=== PATIENT | female | born 1965 | race Caucasian/White ===

== ENCOUNTER 2024-05-20 09:28 | Emergency (ER) | payer BC, SELFPAY ==
[2024-05-20] VITALS (27 sets, daily range): BP systolic 69–118; BP diastolic 45–79; PULSE 68–77; TEMP 36.6; O2SAT 92–98; BMI 30.9
--- NOTE | 2024-05-20 09:47 | ECG_ITS ---
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
--- NOTE | 2024-05-20 09:48 | CT_ITS ---
The [address] [address] Patient Name: FANY SOLOMON MRN: [id number] date: 1965 Sex: F Assigned Patient Location: ER Current Patient Location: Accession/Order Number: [id number] Exam Date: 05/20/2024 09:55 Report Date: 05/20/2024 10:16 At the request of: KRISTIAN DIAZ Procedure: CT stroke head/brain wo con EXAMINATION: CT stroke head/brain wo con HISTORY: dysphasia COMPARISON: None. TECHNIQUE: CT head without contrast. Dose reduction techniques were achieved by using: automated exposure control and/or adjustment of mA and /or kV according to patient size and/or use of iterative reconstruction technique. FINDINGS: Negative for acute intracranial hemorrhage. Physiologic calcification bilateral basal ganglia. Ventricles and sulci normal in size. No hydrocephalus. No large loss of terry and white matter differentiation. No midline shift, mass effect, pathologic extra-axial fluid collections. CT/CT stroke head/brain wo con IMPRESSION: Negative for acute intracranial hemorrhage or acute intracranial process. Electronically authenticated by: MALATHI WEBBER Date: 05/20/2024 10:16
[2024-05-20 09:59] LABS: Glucometer 96 mg/dL (74-106)
--- NOTE | 2024-05-20 09:59 | ED_ITS ---
HPI HPI - General Adult General Chief complaint: Neuro Symptoms/Deficit Stated complaint: Possible Stroke Time Seen by Provider: 05/20/24 09:47 Source: patient Mode of arrival: walk-in History of Present Illness HPI narrative: Is a 58-year-old female with history of hypertension, is coming to the ER with symptoms of difficulty speaking, that according to her she just felt like she have extra movement of her mouth and tongue, the patient mentioned that her symptoms resolved at the happened within the last hour before arrival and resolved by the time she got to the ER. The patient is complaining also of a headache right now, she is denying any other complaints and she mentioned that she does not usually drink enough water and she was not [place] almost few days ago where she spends a lot of time outside without drinking water The patient denies any nausea vomiting diarrhea chest pain or dizziness She mentioned that she had similar symptoms almost 4 weeks ago when she had a complete workup for stroke that was negative but she also was hypotensive then She mentioned that she also have some dizziness at the moment Related Data Home Medications ?Medication ?Instructions ?Recorded ?Confirmed albuterol 90 mcg-budesonide 80 2 inh inhalation Q6H 05/20/24 05/20/24 mcg/actuation HFA aerosol inhaler (Airsupra) atorvastatin 40 mg tablet 40 mg PO DAILY 05/20/24 05/20/24 budesonide 160 mcg-glycopyr 9 2 inh inhalation Q12H 05/20/24 05/20/24 mcg-formot 4.8 mcg/actuation HFA inhaler (Breztri Aerosphere) gabapentin 800 mg tablet 800 mg PO Q6H 05/20/24 05/20/24 omeprazole 40 mg capsule,delayed 40 mg PO Q12H 05/20/24 05/20/24 release tizanidine 4 mg tablet 4 mg PO Q8H PRN muscle spasticity 05/20/24 05/20/24 zolpidem 10 mg tablet 10 mg PO BEDTIME 05/20/24 05/20/24 Allergies Allergy/AdvReac Type Severity Reaction Status Date / Time No Known Drug Allergies Allergy Verified 05/20/24 09:35 Opioid HPI Opioid Management Most Recent Opioid Data: No Data to Display Review of Systems ROS Status of ROS 10 or more systems reviewed and unremark able except as noted in history and below PFSH PFSH Social History Little interest or pleasure in doing things: not at all Feeling down, depressed, or hopeless: not at all Exam Narrative Exam Narrative: Nurses notes and vital signs reviewed and patient is not hypoxic. General: Well-appearing and in no apparent distress. Skin: Warm, dry, no pallor noted. No rash. Head: Normocephalic, atraumatic. Neck: Supple, non-tender. Eye: Pupils are equal, round and EOMI. No scleral icterus. Ears, Nose, Mouth, and Throat: TM are clear, no nasal mucosal hypertrophy. Oral mucosa is moist, no posterior oropharynx erythema, uvula is mid-line Cardiovascular: Regular Rate and Rhythm without murmur, gallop or rub. Respiratory: No accessory muscle use or respiratory distress. Lungs are clear to auscultation, no wheezing, rales or rhonchi Chest Wall: no tenderness Back: No midline thoracic or lumbar vertebral tenderness. No CVA tenderness Musculoskeletal: normal ROM, no calf or popliteal tenderness, no lower extremity edema/swelling GI: Abdomen is soft, non-distended. Normal bowel sounds. No masses appreciated. No tenderness to palpation. No rebound, guarding, or rigidity noted. Neurological: A&O x4. No cranial nerve dysfunction observed. No truncal ataxia. Moves all extremities. Sensation intact. Psychiatric: Cooperative and interactive. Normal mood and affect. Constitutional Vital Signs, click to edit/add: Last Vital Signs Temp 97.9 F 05/20/24 09:36 Pulse 71 05/20/24 12:00 Resp 20 05/20/24 12:00 BP 118/79 05/20/24 12:37 Pulse Ox 96 05/20/24 12:00 O2 Del Method Room Air 05/20/24 09:36 Course Vital Signs Vital signs: Vital Signs Temperature 97.9 F 05/20/24 09:36 Pulse Rate 76 05/20/24 09:36 Respiratory Rate 18 05/20/24 09:36 Blood Pressure 69/45 L 05/20/24 09:36 Pulse Oximetry 96 05/20/24 09:36 Oxygen Delivery Method Room Air 05/20/24 09:36 Temperature 97.9 F 05/20/24 09:36 Pulse Rate 71 05/20/24 12:00 Respiratory Rate 20 05/20/24 12:00 Blood Pressure 118/79 09/08/24 12:37 Pulse Oximetry 96 05/20/24 12:00 Oxygen Delivery Method Room Air 05/20/24 09:36 Medical Decision Making MDM Narrative Medical decision making narrative: The patient complete examination was benign upon arrival her symptoms started at almost 915 and right now it is 10 AM and 45 minutes later the patient have no symptoms She was hypotensive with blood pressure less than 80 systolic upon putting the patient in Trendelenburg position blood pressure responded The patient was already have no symptoms at the moment The patient EKG showing sinus rhythm with a heart rate of [address] elevation or depression The patient CBC and chemistry showed acute kidney injury and with the patient hypotension and the fact that she was monitored in the ER at least for few hours during which she had no symptoms CT head showed no acute pathology The patient presentation is mostly secondary to overtreatment of her blood pressure right now the patient was provided with 2 L of fluid after which her blood pressure was maintained within normal even after ambulating in the ER and rechecking it The patient was instructed to stop her losartan right now until her blood pressure is 130 systolic or above and she is to measure her blood pressure daily and to keep a journal of it to take it to her primary care doctor because she need to recheck her kidney function within a week The patient to continue holding her beta-mahendra The patient to come back in case of new symptoms The patient is to follow up with primary care physician in next 2-3 days or to return to the emergency department should any of the signs or symptoms worsen or new symptoms develop. The patient agrees with the following Diagnosis and Treatment plan and the patient will be discharged home. Lab Data Labs: Lab Results 05/20/24 05/20/24 Range/Units 09:52 09:53 WBC 9.3 (4.0-11.0) 10^3/uL RBC 4.27 (4.20-5.40) 10^6/uL Hgb 12.5 (12.0-16.0) g/dL Hct 39.2 (36.0-48.0) % MCV 91.8 (81.0-99.0) fL MCH 29.3 (26.7-34.0) pg MCHC 31.9 (29.9-35.2) g/dL RDW 13.6 (11.0-15.0) % Plt Count 260 (150-450) 10^3/uL MPV 11.3 (9.5-13.5) fL Neut % (Auto) 44.0 (43.0-75.0) % Lymph % (Auto) 45.9 (20.5-60.0) % [place] % (Auto) 6.8 (1.7-12.0) % Eos % (Auto) 2.7 (0.9-7.0) % Baso % (Auto) 0.3 (0.2-2.0) % Neut # (Auto) 4.1 (1.4-6.5) 10^3/uL Lymph # (Auto) 4.3 H (1.2-3.8) 10^3/uL [place] # (Auto) 0.6 (0.3-0.8) 10^3/uL Eos # (Auto) 0.3 (0.0-0.7) 10^3/uL Baso # (Auto) 0.0 (0.0-0.1) 10^3/uL Abs Immat Gran (auto) 0.03 (0.00-0.03) 10^3/uL Imm/Tot Granulo (auto) 0.3 (0.0-0.5) % PT 10.6 (9.0-11.6) sec INR 1.00 Sodium 141 (136-145) mmol/L Potassium 4.0 (3.5-5.1) mmol/L Chloride 102 (98-107) mmol/L Carbon Dioxide 28.7 (21.0-32.0) mmol/L Anion Gap 14.3 BUN 26.0 H (7.0-18.0) mg/dL Creatinine 1.79 H (0.55-1.02) mg/dL Est GFR ( Amer) 35 L (>=60) Est GFR (Non-Af Amer) 29 L (>=60) BUN/Creatinine Ratio 14.5 Glucose 101 (74-106) mg/dL Lactate 1.1 (0.4-2.0) mmol/L Calcium 9.2 (8.5-10.1) mg/dL Magnesium 1.9 (1.8-2.4) mg/dL Total Bilirubin 0.7 (0.2-1.0) mg/dL AST 38 H (15-37) U/L ALT 30 (14-59) U/L Alkaline Phosphatase 124 H (46-116) U/L Troponin I High Sens <4.0 L (4.0-51.3) pg/mL Total Protein 7.4 (6.4-8.2) g/dL Albumin 3.6 (3.4-5.0) g/dL Globulin 3.8 g/dL Albumin/Globulin Ratio 0.9 POC Glucose 96 (74-106) mg/dL Discharge Plan Discharge Chief Complaint: Neuro Symptoms/Deficit Clinical Impression: Hypotension, MCKAYLA (acute kidney injury) Patient Disposition: Home, Self-Care Time of Disposition Decision: 12:43 Condition: Good Prescriptions / Home Meds: Discontinued losartan 100 mg tablet 100 mg PO DAILY No Action Airsupra 90-80 mcg/actuation HFA aerosol inhaler 2 inh INHALATION Q6H atorvastatin 40 mg tablet 40 mg PO DAILY Breztri Aerosphere 160-9-4.8 mcg/actuation HFA aerosol inhaler 2 inh INHALATION Q12H gabapentin 800 mg tablet 800 mg PO Q6H tizanidine 4 mg tablet 4 mg PO Q8H PRN (Reason: muscle spasticity) zolpidem 10 mg tablet 10 mg PO BEDTIME omeprazole 40 mg capsule,delayed release(DR/EC) 40 mg PO Q12H Print Language: Ecuad[place] Instructions: Acute Kidney Injury (DC), Hypotension (DC) Additional Instructions: Patient will continue to hold her beta-mahendra and just resume her losartan in case her blood pressure is above 130 systolic after measuring his daily and keeping a journal of the blood pressure The patient also to drink daily 64 ounces of water at least and in addition to follow-up with her primary care doctor for kidney function recheck within a week Referrals: Physician,Non-Staff, MD [Primary Care Provider] - 1 week
[2024-05-20 10:01] LABS: Basophils Percent Auto 0.3 % (0.2-2.0); Eosinophils Absolute Auto 0.3 10^3/uL (0.0-0.7); Eosinophils Percent Auto 2.7 % (0.9-7.0); Hematocrit 39.2 % (36.0-48.0); Hemoglobin 12.5 g/dL (12.0-16.0); Immature Granulocytes Abs Auto 0.03 10^3/uL (0.00-0.03); Immature Granulocytes Pct Auto 0.3 % (0.0-0.5); Lymphocytes Absolute Auto 4.3 10^3/uL (1.2-3.8); Lymphocytes Percent Auto 45.9 % (20.5-60.0); Mean Corpuscular HGB Conc 31.9 g/dL (29.9-35.2); Mean Corpuscular Hemoglobin 29.3 pg (26.7-34.0); Mean Corpuscular Volume 91.8 fL (81.0-99.0); Mean Platelet Volume 11.3 fL (9.5-13.5); Monocytes Absolute Auto 0.6 10^3/uL (0.3-0.8); Monocytes Percent Auto 6.8 % (1.7-12.0); Neutrophils Absolute Auto 4.1 10^3/uL (1.4-6.5); Platelet Count 260 10^3/uL (150-450); Red Blood Count 4.27 10^6/uL (4.20-5.40); Red Cell Distribution Width 13.6 % (11.0-15.0); White Blood Count 9.3 10^3/uL (4.0-11.0)
[2024-05-20] MEDS: 0.9 % SODIUM CHLORIDE 1,000 ML 1000 ML IV ×3 (10:03→11:32)
[2024-05-20 10:19] LABS: Prothrombin Time 10.6 sec (9.0-11.6)
[2024-05-20 10:24] LABS: Anion Gap 14.3
[2024-05-20 10:25] LABS: Lactate/Lactic Acid 1.1 mmol/L (0.4-2.0)
[2024-05-20 10:26] LABS: Alanine Aminotransferase 30 U/L (14-59); Albumin Globulin Ratio 0.9; Albumin Level 3.6 g/dL (3.4-5.0); Alkaline Phosphatase 124 U/L (46-116); Aspartate Amino Transferase 38 U/L (15-37); BUN Creatinine Ratio 14.5; Bilirubin Total 0.7 mg/dL (0.2-1.0); Calcium 9.2 mg/dL (8.5-10.1); Carbon Dioxide 28.7 mmol/L (21.0-32.0); Chloride 102 mmol/L (98-107); Estimated GFR (African America 35 (>=60); Estimated GFR (Non-African Ame 29 (>=60); Globulin 3.8 g/dL; Glucose 101 mg/dL (74-106); Sodium 141 mmol/L (136-145); Total Protein 7.4 g/dL (6.4-8.2); Troponin I High Sensitivity <4.0 pg/mL (4.0-51.3)
[2024-05-20 10:48] LABS: Magnesium 1.9 mg/dL (1.8-2.4)
== END 2024-05-20 13:21 | disposition home or self-care (01) ==
PROVIDERS: Emergency Provider Emergency Medicine
DX: I95.9 Hypotension, unspecified (principal); N17.9 Acute kidney failure, unspecified
CPT/HCPCS: 36415; 70450; 80053; 83605; 83735; 84484; 85025; 85610; 93005; 99285